=== PATIENT | male | born 1985 | race Hispanic/Latino ===

== ENCOUNTER 2017-06-29 23:10 | Emergency (ER) | payer SELFPAY ==
[~2017-06-29] VITALS: Ht 177.8 cm; Wt 79.4 kg
== END 2017-06-30 00:06 | disposition home or self-care (01) ==
LOC: ER 23:10
DX: L02.413 Cutaneous abscess of right upper limb (principal); F17.210 Nicotine dependence, cigarettes, uncomplicated
CPT/HCPCS: 99282